=== PATIENT | female | born 1995 | race Two or more races ===

== ENCOUNTER 2023-08-05 06:06 | Emergency (ER) | payer OTHER ==
[~2023-08-05] VITALS: Ht 157.5 cm; Wt 67.6 kg
[2023-08-05 06:10] VITALS: BP 130/92; PULSE 115; RESP 17; TEMP 98; O2SAT 100
[2023-08-05 06:14] VITALS: O2SAT 98
[2023-08-05] MEDS ORDERED: NACL 0.9% 1,000 ML IV ONE (06:40)
[2023-08-05] MEDS ORDERED: KETOROLAC 30 MG/ML VIAL IVP ONE (06:40)
[2023-08-05] MEDS ORDERED: IBUP-2213 PO (06:51)
[2023-08-05] MEDS ORDERED: ATA25 PO (06:51)
[2023-08-05 06:57] VITALS: BP 135/91; PULSE 78; RESP 17; TEMP 98.1; O2SAT 100
== END 2023-08-05 06:53 | disposition home or self-care (01) ==
LOC: MED 06:06
DX: R00.2 Palpitations (principal); R11.0 Nausea; R10.9 Unspecified abdominal pain; Z88.0 Allergy status to penicillin
CPT/HCPCS: 99283